=== PATIENT | female | born 1995 | race Caucasian/White ===

== ENCOUNTER 2017-06-28 21:01 | Emergency (ER) | payer OTHER ==
[~2017-06-28] VITALS: Ht 167.6 cm; Wt 62.6 kg
[2017-06-28 21:18] VITALS: Ht 167.6 cm; Wt 62.6 kg
[2017-06-28 23:36] LABS: UA SPECIFIC GRAVITY 1.025 (1.005-1.035); microscopic required? YES; urine erythrocyte NEGATIVE (NEGATIVE)
[2017-06-29 00:18] VITALS: BP 111/63
== END 2017-06-29 00:18 | disposition home or self-care (01) ==
LOC: ED 21:01
PROVIDERS: Specialist
DX: N39.0 Urinary tract infection, site not specified (principal); R11.10 Vomiting, unspecified
CPT/HCPCS: J1885

== ENCOUNTER 2018-01-05 15:04 | Emergency (ER) | payer OTHER ==
[~2018-01-05] VITALS: Ht 167.6 cm; Wt 59.4 kg
[2018-01-05 15:25] VITALS: Ht 167.6 cm; Wt 59.4 kg
[2018-01-05 16:01] VITALS: BP 109/67
== END 2018-01-05 16:01 | disposition home or self-care (01) ==
LOC: ED 15:04
DX: H11.9 Unspecified disorder of conjunctiva (principal)

== ENCOUNTER 2018-11-29 13:44 | Emergency (ER) | payer OTHER ==
[~2018-11-29] VITALS: Ht 167.6 cm; Wt 65.3 kg
[2018-11-29 13:51] VITALS: Ht 167.6 cm; Wt 65.3 kg
[2018-11-29 15:08] LABS: BASOPHIL % 0.5 % (0-2); PLATELET COUNT 246 x10^3mcL (130-400); RED CELL DISTRIBUTION WIDTH 13.2 % (11.5-14.5)
[2018-11-29 16:18] VITALS: BP 108/60
== END 2018-11-29 16:18 | disposition home or self-care (01) ==
LOC: ED 13:44
PROVIDERS: Emergency Medicine
DX: O23.41 Unspecified infection of urinary tract in pregnancy, first trimester (principal); O21.9 Vomiting of pregnancy, unspecified; Z3A.01 Less than 8 weeks gestation of pregnancy
CPT/HCPCS: J2405; J7030

== ENCOUNTER → 2018-12-29 | Outpatient (CLI) | payer OTHER ==
[2018-12-29 13:57] LABS: microscopic required? NO
[2018-12-29 15:26] LABS: BASOPHIL % 0.7 % (0-2); PLATELET COUNT 226 x10^3mcL (130-400); RED CELL DISTRIBUTION WIDTH 12.9 % (11.5-14.5)
[2018-12-29 15:33] LABS: UA SPECIFIC GRAVITY 1.015 (1.005-1.035); urine erythrocyte NEGATIVE (NEGATIVE)
== END | disposition home or self-care (01) ==
LOC: LB 12:41
DX: E84.9 Cystic fibrosis, unspecified (principal)
CPT/HCPCS: 87491; 87591

== ENCOUNTER → 2019-05-06 | Outpatient (CLI) | payer OTHER ==
[2019-05-06 17:52] LABS: BASOPHIL % 0.2 % (0-2); PLATELET COUNT 214 x10^3mcL (130-400); RED CELL DISTRIBUTION WIDTH 14.4 % (11.5-14.5)
[2019-05-06 18:09] LABS: GLUCOSE FASTING 72 mg/dL (70-110)
[2019-05-06 19:20] LABS: GLUCOSE FASTING 72 mg/dL (70-110)
== END | disposition home or self-care (01) ==
LOC: LB 16:25
DX: Z34.83 Encounter for supervision of other normal pregnancy, third trimester (principal)
CPT/HCPCS: 82947

== ENCOUNTER → 2019-06-14 | Outpatient (CLI) | payer OTHER | END | disposition home or self-care (01) | LOC: LB 14:09 | DX: Z34.83 Encounter for supervision of other normal pregnancy, third trimester (principal) ==

== ENCOUNTER → 2020-06-02 | Outpatient (CLI) | payer OTHER | END | disposition home or self-care (01) | LOC: LB 10:49 | DX: N91.2 Amenorrhea, unspecified (principal) | CPT/HCPCS: 82670; 84403 ==

== ENCOUNTER → 2020-08-01 | Outpatient (CLI) | payer OTHER ==
[2020-08-01 11:23] LABS: RED CELL DISTRIBUTION WIDTH 13.2 % (12.3-17.7)
[2020-08-01 11:25] LABS: BASOPHIL % 0.6 % (0.2-1.3); PLATELET COUNT 274 x10^3mcL (179-408)
== END | disposition home or self-care (01) ==
LOC: LB 10:56
DX: E34.9 Endocrine disorder, unspecified (principal); E61.1 Iron deficiency; D52.9 Folate deficiency anemia, unspecified
CPT/HCPCS: 82670